=== PATIENT | female | born 1995 | race African-American/Black ===

== ENCOUNTER 2017-02-22 17:22 | Emergency (ER) | payer MEDICAID ==
[~2017-02-22] VITALS: Ht 157.5 cm; Wt 38.1 kg
[2017-02-22 17:39] VITALS: BP 121/87
[2017-02-22] MEDS ORDERED: Cyclobenzaprine 10mg Tab ORAL ONE (18:15)
[2017-02-22] MEDS ORDERED: IBUPROFEN400 MG ORAL (18:28)
[2017-02-22] MEDS ORDERED: CYCLOBENZAPRINE10 MG ORAL (18:28)
[2017-02-22 18:46] VITALS: BP 121/87
--- NOTE | 2017-02-23 15:04 | Emergency Room Report ---
History of Present Illness General Chief Complaint: Lower Back Pain or Injury Source: Patient Present Illness HPI 21-year-old female presents ED complaining of neck and back pain times one week. Denies trauma. Notes pain in the right side of the neck radiating down the right shoulder and right upper back. Pain is throbbing, 7/10, worse with twisting and bending. Denies fevers or chills. Denies headache. No other aggravating or relieving factors. Denies any other associate symptoms Allergies: Coded Allergies: No Known Allergies (Unverified , 02/22/17) Patient History Past Medical History: none Past Surgical History: none Pertinent Family History: none Social History: Denies: alcohol use, drug use, smoking Now: No Immunizations: UTD Reviewed Nursing Documentation: PMH: Agreed, PSxH: Agreed Nursing Documentation-PMH Past Medical History: No History, Except For Hx Hypertension: No - SCOLIOSIS Review of Systems All Other Systems: negative except mentioned in HPI Physical Exam Vital Signs Date Time Temp Pulse Resp B/P Pulse Ox O2 Delivery O2 Flow Rate FiO2 02/22/17 17:39 97.3 99 20 121/87 100 Room Air Sp02 EP Interpretation: reviewed, normal General Appearance: no apparent distress, alert, GCS 15, non-toxic, thin Head: normocephalic Eyes: bilateral eye PERRL, bilateral eye normal inspection ENT: hearing grossly normal, normal pharynx, no angioedema, normal voice Neck: full range of motion, no bony tend, supple/symm/no masses, tender lateral Respiratory: chest non-tender, lungs clear, normal breath sounds, speaking full sentences Cardiovascular #1: regular rate, rhythm, no edema Gastrointestinal: normal inspection Rectal: deferred Genitourinary: no CVA tenderness Musculoskeletal: tender - R upper back paraspinal Neurologic: alert, oriented x3, responsive, motor strength/tone normal, sensory intact, speech normal Psychiatric: normal inspection Skin: normal inspection Lymphatic: normal inspection Medical Decision Making Diagnostic Impression: Primary Impression: Neck muscle strain Qualified Codes: S16.1XXA - Strain of muscle, fascia and tendon at neck level , initial encounter ER Course Hospital Course 21-year-old female presents ED complaining of neck pain and upper back pain. No evidence of trauma Differential diagnoses include: T spine fx, rib contusion, cervical strain Clinical course Patient placed on stretcher. After initial history physical exam reveals a young female in no acute distress. There is no midline C-spine or T-spine tenderness. There is some paraspinal tenderness in the neck especially over the sternocleidomastoid. Pain underneath the right scapula. No rib tenderness. Pain is likely muscular strain. Given Motrin and Flexeril for pain. Upon reassessment patient states pain has improved. Diagnosis - neck muscle strain Stable and discharged to home with prescription for Motrin, Flexeril. Followup with PMD. Return to ED if symptoms recur or worsen Last Vital Signs Date Time Temp Pulse Resp B/P Pulse Ox O2 Delivery O2 Flow Rate FiO2 02/22/17 18:46 97.3 20 121/87 100 Room Air 02/22/17 17:39 99 Status: improved Disposition: HOME, SELF-CARE Condition: Stable Scripts Cyclobenzaprine Hcl* (FLEXERIL*) 10 Mg Tablet 10 MG ORAL TID Y for Muscle Spasm, #20 TAB Prov: MARLEY DE LEON M.D. 02/22/17 Ibuprofen* (MOTRIN*) 400 Mg Tablet 400 MG ORAL Q8H, #30 TAB 0 Refills Prov: MARLEY DE LEON M.D. 02/22/17 Referrals: [facility] (PCP) Patient Instructions: Cervical Sprain, [id number] MARLEY DE LEON M.D. February 23, 2017 15:04
== END 2017-02-22 18:46 | disposition home or self-care (01) ==
LOC: EMR 18:15
DX: S16.1XXA Strain of muscle, fascia and tendon at neck level, initial encounter (principal); M41.9 Scoliosis, unspecified; X58.XXXA Exposure to other specified factors, initial encounter; Y92.9 Unspecified place or not applicable; Y99.8 Other external cause status
CPT/HCPCS: 99284

== ENCOUNTER 2019-04-12 19:08 | Emergency (ER) | payer MEDICAID ==
[~2019-04-12] VITALS: Ht 157.5 cm; Wt 38.1 kg
[~2019-04-12 19:08] MED LIST: CYCLOBENZAPRINE10 MG ORAL; IBUPROFEN400 MG ORAL
[2019-04-12 19:35] VITALS: BP 118/82
--- NOTE | 2019-04-12 19:35 | NUR ---
ED Nurse Note: Patient walked in to ER c/o right upper back pain. AAO x4, VSS at this time.
[2019-04-12] MEDS ORDERED: LIDODERM700 M1 TOPIC (20:13)
[2019-04-12] MEDS ORDERED: IBUPROFEN600 MG ORAL (20:13)
--- NOTE | 2019-04-12 20:13 | Emergency Room Report ---
History of Present Illness General Chief Complaint: Pain Source: Patient Present Illness HPI 23-year-old female presents to the emergency department complaining of 10 out of 10 severity pain to the right side of her upper back for several weeks. Patient states that she tosses and turns at night and often has trouble sleeping due to pain. Patient states that she was seen at [facility] 6 days ago and was discharged with muscle relaxer. Patient states that medications are not working she also reports that she has a long-standing history of scoliosis where she required specialty bracing as a kid. Patient denies trauma or fall she denies cough, shortness of breath, chest pains or palpitations. Denies recent spinal procedures. Denies numbness tingling or loss of sensation or gross motor movements of the extremities, incontinence of bowel or bladder. weakness or inability to ambulate. Pt. denies changes in character to the symptoms she was previously evaluated for at [facility] 6 days ago. Pt. reports taking Laporte [employer] which has not helped much. pt. states she has not tried taking Motrin or anti-inflammatory OTC medications. She states she was rx' d Baclofen. Allergies: Coded Allergies: No Known Allergies (Unverified , 02/22/17) Patient History Past Medical History: see triage record Past Surgical History: none Pertinent Family History: none Last Menstrual Period: 04/11/2019 Now: No Reviewed Nursing Documentation: PMH: Agreed; PSxH: Agreed Nursing Documentation-PMH Past Medical History: No History, Except For Hx Hypertension: No - SCOLIOSIS Review of Systems All Other Systems: negative except mentioned in HPI Physical Exam Vital Signs Date Time Temp Pulse Resp B/P (MAP) Pulse Ox O2 Delivery O2 Flow Rate FiO2 04/12/19 19:16 97.7 102 16 118/82 (94) 99 Room Air Sp02 EP Interpretation: reviewed, normal General Appearance: no apparent distress, alert, GCS 15, non-toxic Head: normocephalic, atraumatic Eyes: bilateral eye normal inspection, bilateral eye PERRL ENT: hearing grossly normal, normal voice Neck: full range of motion Respiratory: lungs clear, normal breath sounds, no wheezing, speaking full sentences Cardiovascular #1: regular rate, rhythm Gastrointestinal: non tender, soft Genitourinary: normal inspection, no CVA tenderness Musculoskeletal: gait/station normal, normal range of motion, other - Significant lateral curvature of the spine. left shoulder sits moderately higher than the right., tender - Right thoracic paraspinal musculature tenderness and ttp to the right rhomboid. Neurologic: alert, oriented x3, responsive, motor strength/tone normal, sensory intact, speech normal, grossly normal Psychiatric: judgement/insight normal Skin: normal color, no rash, warm/dry, well hydrated Lymphatic: no adenopathy Medical Decision Making PA Attestation Dr. Cruz is my supervising Physician whom patient management has been discussed with. Diagnostic Impression: Primary Impression: Back pain Qualified Codes: M54.9 - Dorsalgia, unspecified; G89.29 - Other chronic pain Additional Impression: Scoliosis deformity of spine Qualified Codes: M41.9 - Scoliosis, unspecified ER Course 23-year-old female presents to the emergency department complaining of 10 out of 10 severity pain to the right side of her upper back for several weeks. Patient states that she tosses and turns at night and often has trouble sleeping due to pain. Patient states that she was seen at [facility] 6 days ago and was discharged with muscle relaxer. Patient states that medications are not working she also reports that she has a long-standing history of scoliosis where she required specialty bracing as a kid. Patient denies trauma or fall she denies cough, shortness of breath, chest pains or palpitations. Denies recent spinal procedures. Denies numbness tingling or loss of sensation or gross motor movements of the extremities, incontinence of bowel or bladder. weakness or inability to ambulate. Pt. denies changes in character to the symptoms she was previously evaluated for at [facility] 6 days ago. Pt. reports taking Laporte [employer] which has not helped much. pt. states she has not tried taking Motrin or anti-inflammatory OTC medications. She states she was rx' d Baclofen. Ddx considered but are not limited to Fracture, dislocation, contusion, Sprain/ Strain/Spasm, Epidural abscess, Neoplastic mets, PNA, atelectasis, PE. Vital signs: are WNL, pt. is afebrile H&PE are most consistent with chronic progressive chronic spinal condition without evidence of spinal chord involvement. ORDERS: - X-ray's not required this is a chronic condition with no knew changes in character from recent Evaluation. ED INTERVENTIONS: - Lidoderm TP -Motrin PO --d/w pt. appropriate follow up with specialist for further evaluation and any necessary definitive treatment DISCHARGE: At this time pt. is stable for d/c to home. Will provide printed patient care instructions, and any necessary prescriptions. Care plan and follow up instructions have been discussed with the patient prior to discharge. Last Vital Signs Date Time Temp Pulse Resp B/P (MAP) Pulse Ox O2 Delivery O2 Flow Rate FiO2 04/12/19 19:16 97.7 102 16 118/82 (94) 99 Room Air Disposition: HOME, SELF-CARE Condition: Stable Scripts Ibuprofen* (MOTRIN*) 600 Mg Tablet 600 MG ORAL THREE TIMES A DAY, #30 TAB 0 Refills Prov: Paty Tinsley 04/12/19 Lidocaine (Lidoderm) 1 Each Adh..patch 1 PATCH TOPIC DAILY, #30 PATCH 0 Refills Patch(es) may remain in place for up to 12 hours in any 24-hour period. Prov: Paty Tinsley 04/12/19 Patient Instructions: Scoliosis Additional Instructions: Take medications as directed. Follow up with an SUPPLY REQUIREMENTS OFFICER in 3-5 days, even if your symptoms have resolved. Return sooner to ED if new symptoms occur, or current symptoms become worse. - Please note that this Emergency Department Report was dictated using [employer] technology software, occasionally this can lead to erroneous entry secondary to interpretation by the dictation equipment. Paty Tinsley Apr 12, 2019 20:13
[2019-04-12 20:30] VITALS: BP 118/82
--- NOTE | 2019-04-12 20:30 | NUR ---
ED Nurse Note: Pt cleared by health care Provider for discharge. DC instructions/prescription was given and explained to pt and verbalized understanding of teachings. All medical deviecs such as ID band removed. Pt is AAO x4, ambulatory and left with all personal belongings.
== END 2019-04-12 20:30 | disposition home or self-care (01) ==
LOC: EMR 20:11
DX: G89.29 Other chronic pain (principal); M54.9 Dorsalgia, unspecified; M41.9 Scoliosis, unspecified
CPT/HCPCS: 99282